=== PATIENT | female | born 1990 | race African-American/Black ===

== ENCOUNTER 2022-10-27 18:17 | Emergency (ER) | payer OTHER ==
[2022-10-27 19:19] LABS: #Eosinphils 0.2 10x3/uL (0.0-0.5); #Monocytes 0.6 10x3/uL (0.0-1.1); #Neutrophils 4.9 10x3/uL (1.5-8.4); %Basophils 0.5 % (0.0-2.0); %Eosinophils 1.9 % (0.0-6.0); %Lymphocytes 32.6 % (18.0-47.0); %Monocytes 6.6 % (0.0-10.0); %Neutrophils 58.3 % (40.0-75.0); Mean Corpuscular HGB CONC 31.5 g/dL (32.0-36.0); Mean Corpuscular Volume 69.8 fl (81.6-98.3); Mean Platelet Volume 8.9 fl (7.4-10.4); Platelet Count 477 10x3/uL (150-450); RBC Distribution Width 17.8 % (11.5-14.5); White Blood Cell (WBC) Count 8.4 10x3/uL (3.5-10.5)
[2022-10-27 19:29] LABS: ALT (SGPT) 6 U/L (8-55); AST (SGOT) 14 U/L (5-34); Albumin 4.2 g/dL (3.5-5.0); Alkaline Phosphatase 45 U/L (40-110); Anion Gap 13 mmol/L (10-20); BUN (Urea Nitrogen) 10 mg/dL (7.0-18.7); Bilirubin, Total 0.2 mg/dL (0.2-1.2); Calc. Creatinine Clearance 0 mL/min (70-130); Calcium 8.9 mg/dL (7.8-10.44); Carbon Dioxide 22 mmol/L (22-29); Chloride 105 mmol/L (98-107); Estimated GFR 100; Globulin 3.5 g/dL (2.4-3.5); Glucose 87 mg/dL (70-105); Potassium 4.1 mmol/L (3.5-5.1); Protein, Total 7.7 g/dL (6.0-8.3); Sodium 136 mmol/L (136-145)
[2022-10-27 21:15] LABS: Bilirubin Neg (Negative); Blood, Urine Negative (Negative); Glucose, Urine (Dipstick) Normal (Negative); Ketone, Urine Negative (Negative); Leukocyte Negative (Negative); Nitrite Negative (Negative); Protein, Urine (Dipstick) 15 mg/dl (Neg-Trace); Urobilinogen Normal mg/dL (Less than 2)
[2022-10-27 21:16] LABS: Clarity Clear (Clear)
== END 2022-10-27 23:09 | disposition home or self-care (01) ==
LOC: CSHERS 18:17
DX: O20.0 Threatened abortion (principal); O36.8310 Maternal care for abnormalities of the fetal heart rate or rhythm, first trimester, not applicable or unspecified; O99.011 Anemia complicating pregnancy, first trimester; Z3A.01 Less than 8 weeks gestation of pregnancy
CPT/HCPCS: 36415; 76856; 80053; 81003; 84702; 85025

== ENCOUNTER 2023-05-13 09:37 | Day surgery (SDC) | payer OTHER ==
[2023-05-13] MEDS ORDERED: Acetaminophen 500 MG TAB ONE (09:44)
[2023-05-13] MEDS ORDERED: Acetaminophen 500 MG TAB PO SCH (09:45)
[2023-05-13] MEDS ORDERED: Iron Sucrose Complex 500 MG in Sodium Chloride 0.9% 250 ML 250 ML IVPB SCH (10:15)
== END 2023-05-13 14:40 | disposition home or self-care (01) ==
LOC: CSHSDC/OP 09:37
PROVIDERS: ATTEND Student in an Organized Health Care Education/Training Program
DX: O99.019 Anemia complicating pregnancy, unspecified trimester (principal); D64.9 Anemia, unspecified
CPT/HCPCS: J1756; J7050

== ENCOUNTER 2023-05-29 11:51 | Day surgery (SDC) | payer OTHER ==
[2023-05-29 12:20] VITALS: BMI 28.1
[2023-05-29] MEDS ORDERED: hydrALAZINE 20 MG/ML VIAL SLOW IVP PRN (13:14)
== END 2023-05-29 17:04 | disposition home or self-care (01) ==
LOC: CSHLD/OP 11:51
PROVIDERS: ATTEND Family Medicine
DX: O47.03 False labor before 37 completed weeks of gestation, third trimester (principal); O99.891 Other specified diseases and conditions complicating pregnancy; R00.2 Palpitations; O99.013 Anemia complicating pregnancy, third trimester; D50.9 Iron deficiency anemia, unspecified; Z3A.36 36 weeks gestation of pregnancy; Z79.899 Other long term (current) drug therapy; Z88.5 Allergy status to narcotic agent
CPT/HCPCS: 87480; 87510; 87660; 93306; 99285

== ENCOUNTER 2023-06-10 15:20 | Day surgery (SDC) | payer OTHER ==
[2023-06-10 15:44] VITALS: BMI 28.1
[2023-06-10 16:27] LABS: #Monocytes 0.3 10x3/uL (0.0-1.1); #Neutrophils 2.3 10x3/uL (1.5-8.4); %Lymphocytes 20.8 % (18.0-47.0); %Monocytes 9.5 % (0.0-10.0); %Neutrophils 69.1 % (40.0-75.0); Hematocrit 30.1 % (34.9-44.5); Hemoglobin 10.1 g/dL (12.0-15.5); Mean Corpuscular HGB CONC 33.6 g/dL (32.0-36.0); Mean Corpuscular Hemoglobin 29.3 pg (27.0-33.0); Mean Corpuscular Volume 87.2 fl (81.6-98.3); Mean Platelet Volume 8.9 fl (7.4-10.4); Platelet Count 190 10x3/uL (150-450); RBC Distribution Width 16.7 % (11.5-14.5); Red Blood Cell (RBC) Count 3.45 10x6/uL (3.90-5.03); White Blood Cell (WBC) Count 3.4 10x3/uL (3.5-10.5)
[2023-06-10 16:59] LABS: ALT (SGPT) 12 U/L (8-55); AST (SGOT) 26 U/L (5-34); Albumin 3.4 g/dL (3.5-5.0); Alkaline Phosphatase 94 U/L (40-110); Anion Gap 15 mmol/L (10-20); BUN (Urea Nitrogen) 4 mg/dL (7.0-18.7); Bilirubin, Total 0.4 mg/dL (0.2-1.2); Calc. Creatinine Clearance 147 mL/min (70-130); Calcium 8.4 mg/dL (7.8-10.44); Carbon Dioxide 18 mmol/L (22-29); Chloride 105 mmol/L (98-107); Estimated GFR 121; Globulin 2.9 g/dL (2.4-3.5); Glucose 66 mg/dL (70-105); Potassium 3.6 mmol/L (3.5-5.1); Protein, Total 6.3 g/dL (6.0-8.3); Sodium 134 mmol/L (136-145)
[2023-06-10 17:22] LABS: SARS-CoV-2 NAA Rapid Test Not Detected (NotDetected)
[2023-06-10 18:16] LABS: Creatinine, Urine 104.11 mg/dL (47-110)
[2023-06-10] MEDS ORDERED: Acetaminophen 500 MG TAB PO PRN (20:16)
[2023-06-10] MEDS ORDERED: GUAIFENESIN SF SOLN 200 MG/10 ML UDCUP PO PRN (21:09)
[2023-06-10] MEDS ORDERED: Lactated Ringer's 1,000 ML IV SCH (22:00)
[2023-06-11] MEDS ORDERED: Oseltamivir 75 MG CAP PO SCH (09:00)
== END 2023-06-11 01:00 | disposition short-term general hospital (02) ==
LOC: CSHLD/OP 15:20 → UNDOADMIN 20:58 → CSHLD 20:58 → UNDODISIN 06-11 01:00 → CSHLD/OP 06-11 01:00
PROVIDERS: ATTEND Family Medicine
DX: O14.93 Unspecified pre-eclampsia, third trimester (principal); O99.413 Diseases of the circulatory system complicating pregnancy, third trimester; Z3A.38 38 weeks gestation of pregnancy; O99.891 Other specified diseases and conditions complicating pregnancy; R50.9 Fever, unspecified; I25.2 Old myocardial infarction; I49.8 Other specified cardiac arrhythmias; Z11.52 Encounter for screening for COVID-19
CPT/HCPCS: 76819; 80053; 82570; 84156; 85025; 96360; 96361; 99284; J7120